=== PATIENT | male | born 1995 | race African-American/Black ===

== ENCOUNTER 2017-10-26 15:07 | Emergency (ER) | payer OTHER ==
[~2017-10-26] VITALS: Ht 170.2 cm; Wt 67.6 kg
== END 2017-10-26 17:00 | disposition short-term general hospital (02) ==
LOC: ER 15:07
DX: H21.01 Hyphema, right eye (principal); H40.051 Ocular hypertension, right eye; F17.210 Nicotine dependence, cigarettes, uncomplicated